=== PATIENT | female | born 1995 | race Two or more races ===

== ENCOUNTER 2023-11-12 20:00 | Emergency (ER) | payer SELFPAY ==
[~2023-11-12] VITALS: Ht 157.5 cm; Wt 68.4 kg
[2023-11-12 20:11] VITALS: BP 107/62; PULSE 81; RESP 16; TEMP 98.4; O2SAT 96
[2023-11-12] MEDS: KETOROLAC TROMETH 30 MG/ML 1ML VIAL IM ONE (22:47)
[2023-11-12] MEDS: DexAMETHasone SOD PHOS 10MG/1ML VIAL INJ IM ONE (22:48)
== END 2023-11-12 23:24 | disposition home or self-care (01) ==
LOC: ER 20:00
DX: H92.02 Otalgia, left ear (principal); Z91.040 Latex allergy status
CPT/HCPCS: 96372; 99284; J1100; J1885